=== PATIENT | female | born 1990 | race Caucasian/White ===

== ENCOUNTER 2022-01-24 18:50 | Emergency (ER) | payer MEDICAID, SELFPAY ==
[2022-01-24 18:59] VITALS: BP 126/83; PULSE 136; RESP 20; TEMP 37.3; O2SAT 96; BMI 36.8
--- NOTE | 2022-01-24 19:04 | ED_ITS ---
HPI - General Adult General: Chief complaint: General Medical Stated complaint: Lump in Breast\Fever\N\Muscle Aches Time Seen by Provider: 01/24/22 19:04 History of Present Illness: Ms. Velez is a 31-year-old lady with history of asthma who presents emergency department due to concern over generalized symptoms and breast tenderness. She endorses symptom onset approximately noon today with progressively worsening generalized malaise, body aches, chills, and posterior headache. Quality of symptoms is aching. Course has been worsening. Intensity is moderate. She endorses bilateral arm and wrist pain which is also aching. Additionally she has noticed tenderness and redness of the right breast. No history of MRSA or other skin infections. She is currently breast-feeding. No other specific changes in health, exacerbating, or alleviating factors identified. Onset (ago): hour(s) Severity: moderate Quality: aching Pain Consistency: constant Relieving factors: none Exacerbating factors: movement Associated symptoms: Reports nausea Review of Systems General: Reports: 10 or more systems reviewed and unremarkable except in HPI and below GI: Reports: nausea PFSH ED PFSH: Medical History (Updated 01/24/22 @ 22:53 by Oswaldo Quintana MD) Asthma Surgical History (Updated 01/24/22 @ 19:20 by Oswaldo Quintana MD) History of back surgery Family History (Updated 01/24/22 @ 19:21 by Oswaldo Quintana MD) Denies family history of Clotting disorder Bleeding disorder Social History (Updated 01/24/22 @ 19:21 by Oswaldo Quintana MD) Smoking and tobacco status: former smoker Physical Exam Const: COMMON NORMALS: alert GENERAL APPEARANCE: cooperative, well developed and ill appearing (mildly) HENMT: COMMON NORMALS: normocephalic and atraumatic HEAD & SCALP: normocephalic and atraumatic Eye: COMMON NORMALS: conjunctivae normal CONJUNCTIVA: Yes conjunctivae normal SCLERA: sclerae normal Neck/C-Spine: COMMON NORMALS: supple GENERAL: Yes trachea midline Chest: OTHER: Performed with arc furnace operator present. Right breast with minimal erythema of the lateral breast from the nipple with tenderness palpation. No appreciable abscess identified. Mild/minimal induration. Resp: COMMON NORMALS: normal respiratory effort EFFORT & INSPECTION: Yes a ble to speak in complete sentences Cardio: COMMON NORMALS: regular rhythm RATE: tachycardic RHYTHM: regular rhythm GI: COMMON NORMALS: Soft to palpation PALPATION: Yes Soft to palpation and No Tenderness to palpation present (GI) PERCUSSION: normal to percussion Extremity: GENERAL: Yes normal exam except as noted and No edema Neuro: COMMON NORMALS: moves all extremities SENSORIUM/ORIENTATION: Yes alert and No Orientation impaired Psych: COMMON NORMALS: mental status grossly normal and Normal thought process present THOUGHT PROCESS: Normal thought process present Course ED course: - Patient was seen and evaluated by me at bedside - Patient placed on cardiac monitors, IV access obtained - Initial evaluation notable for exam as above, nontoxic - Labs personally interpreted by me - Fluids and symptom treatment ordered - Labs notable for mild leukocytosis, hemoconcentration noted on hematologic panel. Mild evidence of dehydration on metabolic panel, potassium replenishment given. Procalcitonin is elevated - Given physical exam findings I do not feel that abscess is likely and therefore no imaging needed at this time - Upon serial reexamination after treatment the patient was improved with symptom treatment including improvement in heart rate. - Based on patient history, evaluation, and testing as interpreted the most likely cause of the patient's condition is cellulitis/mastitis. This will be treated with antibiotics. Discussed risks regarding breast-feeding, patient's child is approximately 1 and half years old and therefore very low risk for adverse event related to antibiotic concentration and breastmilk. - Despite initial tachycardia and leukocytosis I believe that patient's overall clinical improvement make certain satisfactory for outpatient management with strict return precautions. Antibiotic dose given prior to discharge. - The results of ED evaluation were discussed with the patient including prescriptions and/or symptomatic cares (if applicable) including appropriate and responsible use, followup plan, and strict return precautions. The patient verbalized understanding and felt safe for discharge. - Patient discharged in satisfactory condition. Note: Click bubbles or prepopulated james in note writing are used for assistance with data collection and billing and are inherently more limited than narrative and other text portions of this note. Please use narrative for additional clinical history and defer to narrative/free test for any case of contradictory information. If information appears in only free text or click bubble it should be considered present or absent as reported. Please contact note check writer salesperson for clarifications of clinical information or contradictory information. MDM is a brief summary, contradictory or erroneous seeming information should be clarified and full note should be reviewed. Vital Signs: Vital signs: Vital Signs Temperature 99.1 F 01/24/22 18:59 Pulse Rate 87 01/24/22 22:59 Respiratory Rate 16 01/24/22 22:59 Blood Pressure 107/86 01/24/22 22:59 Pulse Oximetry 97 01/24/22 22:59 MDM - General Adult Medical Decision Making 31-year-old lady presenting with generalized symptoms and right breast pain with concern over infection. Initially tachycardic and mildly ill-appearing however nontoxic. There is evidence of cellulitis/mastitis without evidence of abscess on clinical exam. Patient improved with treatment and given dose of antibiotics. Satisfactory for outpatient trial of antibiotics with strict return precautions Medical Records I reviewed the patient's medical records. Lab Data I reviewed the patient's lab results. : 01/24/22 20:27 01/24/22 19:47 Laboratory Results WBC 12.4 10^3/uL (4.0-10.0) H 01/24/22 20:27 Corrected WBC Cancelled 01/24/22 19:47 RBC 5.38 10^6/uL (4.1-5.3) H 01/24/22 20:27 Hgb 14.4 g/dL (11.5-15.3) 01/24/22 20:27 Hct 45.3 % (37.0-47.0) 01/24/22 20: MCV 84.2 fl (81-99) 01/24/22 20:27 MCH 26.8 pg (28.0-34.0) L 01/24/22 20: MCHC 31.8 g/dL (30.0-36.0) 01/24/22 20: RDW 14.3 % (12.1-15.1) 01/24/22 20: Plt Count 281 10^3/cmm (130-400) 01/24/22 20: MPV 10.2 fL (7.4-10.4) 01/24/22 20:27 Gran % Cancelled 01/24/22 19:47 Neut % (Auto) 88.4 % 01/24/22 20: Lymph % (Auto) 5.6 % 01/24/22 20: Ritchie % (Auto) 5.2 % 01/24/22 20: Eos % (Auto) 0.3 % 01/24/22 20: Baso % (Auto) 0.2 % 01/24/22 20:27 Neut # (Auto) 10.99 10^3/uL (1.8-7.7) H 01/24/22 20:27 Lymph # (Auto) 0.7 10^3/uL (0.8-4.8) L 01/24/22 20:27 Ritchie # (Auto) 0.7 10^3/uL (0.2-0.9) 01/24/22 20: Eos # (Auto) 0.0 10^3/uL (0.0-0.8) 01/24/22 20: Baso # (Auto) 0.0 10^3/uL (0.0-0.1) 01/24/22 20: Absolute Gran (auto) Cancelled 01/24/22 19:47 Nucleated RBC % (auto) 0 % 01/24/22 20: Nucleated RBCs # 0.0 /100WBC 01/24/22 20:27 Sodium 136 mmol/L (136-145) 01/24/22 19:47 Potassium 3.4 mmol/L (3.5-5.1) L 01/24/22 19:47 Chloride 101 mmol/L (98-107) 01/24/22 19:47 Carbon Dioxide 20 mmol/L (22-29) L 01/24/22 19:47 Anion Gap 18.4 (5-19) 01/24/22 19:47 BUN 13 mg/dL (6-20) 01/24/22 19:47 Creatinine 0.5 mg/dL (0.5-0.9) 01/24/22 19:47 GFR Calculation 143.0 mL/min (90-130) H 01/24/22 19:47 Glucose 97 mg/dL (65-115) 01/24/22 19:47 Calculated Osmolality 282 mOsm/kg (285-295) L 01/24/22 19:47 Lactate 2.2 mmol/L (0.5-2.2) 01/24/22 19:47 Calcium 9.8 mg/dL (8.5-10.5) 01/24/22 19:47 Total Bilirubin 0.5 mg/dL (0.15-1.2) 01/24/22 19:47 AST 30 U/L (0-32) 01/24/22 19:47 ALT 49 U/L (0-33) H 01/24/22 19:47 Alkaline Phosphatase 76 IU/L (35-105) 01/24/22 19:47 Total Protein 7.8 g/dL (6.6-8.7) 01/24/22 19:47 Albumin 4.5 g/dL (3.5-5.2) 01/24/22 19:47 Globulin 3.3 g/dL (1.3-4.6) 01/24/22 19:47 Procalcitonin 1.31 ng/mL (0-0.5) H 01/24/22 19:47 Coronavirus 229E (PCR) Not detected (NOT DETECT) 01/24/22 19:47 SARS-CoV-2 (PCR) Not detected (NOT DETECT) 01/24/22 19:47 Discharge Plan Discharge Patient Disposition: Home Clinical Impression: Acute breast pain, Cellulitis, Tachycardia, Dehydration Condition: Stable Prescriptions: New clindamycin HCl 300 mg capsule 300 mg PO Q8H 10 Days Qty: 30 0RF oxycodone 5 mg tablet 5 mg PO Q4H PRN (Reason: pain) Qty: 10 0RF ondansetron 4 mg tablet,disintegrating 4 mg PO Q8H PRN (Reason: nausea and vomiting) Qty: 15 0RF Discharge Orders: Discharge ED (Routine); Ordered 01/24/22 Ordered By: Oswaldo Quintana Discharge Diet: Usual diet Discharge Activity: Resume usual activity Patient Instructions: Mastitis (ED), Cellulitis (ED), Opioid Safety Activity Restrictions/Additional Instructions: Thank you for visiting the emergency department. You were seen and evaluated for breast pain and likely cellulitis. This will be treated with antibiotics. You were noted to have leukocytosis, evidence of dehydration, and elevated heart rate which can be signs of more serious infection however based on improvement I still feel that outpatient management trial is appropriate. Please follow-up with your primary care provider. Please return to the emergency department for worsening symptoms or anything else that you are concerned about and feel needs emergency department evaluation. Coding Level of Care Code ED Sausage Cutter for Marlen Fwd Exam Comprehensive
[2022-01-24] MEDS: acetaminophen 500 mg Tablet 1000 MG PO (20:03)
[2022-01-24] MEDS: lactated ringers 1,000 ML 999 ML IV ×2 (20:04→21:52)
[2022-01-24 20:09] LABS: Lactate (Lactic Acid level) 2.2 mmol/L (0.5-2.2)
[2022-01-24 20:33] LABS: Basophils % 0.2 %; Eosinophils % 0.3 %; Hematocrit 45.3 % (37.0-47.0); Hemoglobin 14.4 g/dL (11.5-15.3); Lymphocytes # 0.7 10^3/uL (0.8-4.8); Lymphocytes % 5.6 %; Mean Corpuscular HGB Conc 31.8 g/dL (30.0-36.0); Mean Corpuscular Hemoglobin 26.8 pg (28.0-34.0); Mean Corpuscular Volume 84.2 fl (81-99); Mean Platelet Volume 10.2 fL (7.4-10.4); Monocytes # 0.7 10^3/uL (0.2-0.9); Monocytes % 5.2 %; Neutrophils # 10.99 10^3/uL (1.8-7.7); Neutrophils % 88.4 %; Nucleated Red Blood Cells % 0 %; Platelet Count 281 10^3/cmm (130-400); Red Blood Count 5.38 10^6/uL (4.1-5.3); Red Cell Distribution Width 14.3 % (12.1-15.1); White Blood Count 12.4 10^3/uL (4.0-10.0)
[2022-01-24 20:42] VITALS: BP 112/73; PULSE 110; RESP 16; O2SAT 96
[2022-01-24 20:56] LABS: Alanine Aminotransferase 49 U/L (0-33); Albumin Level 4.5 g/dL (3.5-5.2); Alkaline Phosphatase 76 IU/L (35-105); Anion Gap 18.4 (5-19); Aspartate Amino Transferase 30 U/L (0-32); Blood Urea Nitrogen 13 mg/dL (6-20); Calcium 9.8 mg/dL (8.5-10.5); Carbon Dioxide 20 mmol/L (22-29); Chloride 101 mmol/L (98-107); Globulin 3.3 g/dL (1.3-4.6); Glucose 97 mg/dL (65-115); Osmolality Calculated 282 mOsm/kg (285-295); Potassium 3.4 mmol/L (3.5-5.1); Sodium 136 mmol/L (136-145); Total Bilirubin 0.5 mg/dL (0.15-1.2); Total Protein 7.8 g/dL (6.6-8.7)
[2022-01-24 21:03] LABS: Procalcitonin 1.31 ng/mL (0-0.5)
[2022-01-24 21:37] LABS: Adenovirus Not Detected (NOT DETECT); Chlamydia Pneumoniae Not Detected (NOT DETECT); Coronavirus 229E,HKU1,NL63,OC4 Not Detected (NOT DETECT); Human Metapneumovirus Not Detected (NOT DETECT); Human Rhinovirus/Enterovirus Not Detected (NOT DETECT); Influenza A Not Detected (NOT DETECT); Influenza A H1 Not Detected (NOT DETECT); Influenza A H1-2009 Not Detected (NOT DETECT); Influenza A H3 Not Detected (NOT DETECT); Influenza B Not Detected (NOT DETECT); Mycoplasma Pneumoniae Not Detected (NOT DETECT); Parainfluenza Virus Type 1 Not Detected (NOT DETECT); Parainfluenza Virus Type 2 Not Detected (NOT DETECT); Parainfluenza Virus Type 3 Not Detected (NOT DETECT); Parainfluenza Virus Type 4 Not Detected (NOT DETECT); Respiratory Syncytial Virus A Not Detected (NOT DETECT); Respiratory Syncytial Virus B Not Detected (NOT DETECT); SARS-COV-2 Not Detected (NOT DETECT)
[2022-01-24 21:52] VITALS: RESP 18
[2022-01-24] MEDS: morphine 4 mg/mL SDV 1 mL IVP (21:52)
[2022-01-24] MEDS: potassium chloride ER 20 mEq Tablet 40 MEQ PO (21:52)
[2022-01-24] MEDS: clindamycin 600 MG/50 ML PREMIX 100 MG IV (22:16)
[2022-01-24 22:18] VITALS: BP 94/67; PULSE 85; RESP 16; O2SAT 95
[2022-01-24 22:59] VITALS: BP 107/86; PULSE 87; RESP 16; O2SAT 97
== END 2022-01-24 23:02 | disposition home or self-care (01) ==
PROVIDERS: Emergency Provider Emergency Medicine
DX: N64.4 Mastodynia (principal); N61.0 Mastitis without abscess; R00.0 Tachycardia, unspecified; E86.0 Dehydration
CPT/HCPCS: 36415; 80053; 83605; 84145; 85025; 87040; 87635; 96365; 96375; 99284; J2270; J3490

== ENCOUNTER 2023-02-15 06:00 | Outpatient (RCR) | payer OTHER, SELFPAY | END 2023-03-15 23:59 | disposition home or self-care (01) | LOC: TPT 06:00 | PROVIDERS: Visit Provider Orthopaedic Surgery | DX: S83.241D Other tear of medial meniscus, current injury, right knee, subsequent encounter (principal); X58.XXXD Exposure to other specified factors, subsequent encounter | CPT/HCPCS: 97110; 97161 ==

== ENCOUNTER 2023-03-16 06:00 | Outpatient (RCR) | payer OTHER, SELFPAY | END 2023-03-28 23:59 | disposition home or self-care (01) | LOC: TPT 06:00 | PROVIDERS: Visit Provider Orthopaedic Surgery | DX: S83.241D Other tear of medial meniscus, current injury, right knee, subsequent encounter (principal); X58.XXXD Exposure to other specified factors, subsequent encounter | CPT/HCPCS: 97110; 97140 ==

== ENCOUNTER 2025-04-11 19:49 | Emergency (ER) | payer BC, SELFPAY ==
--- OUTSIDE RECORDS SUMMARY | 2024-05-13 08:20 | XMS_ITS ---
Author Organization [facility] Address [address] [place] [address] Care Team Providers Care Police Booking Officer Name Role Phone Kiki Packer Primary Care Provider [phone] Linda Lopez Unavailable [phone] KIKI PACKER Unavailable Unavailable Teresa Moreno [phone] REASON FOR VISIT RIGHT KNEE Encounters Encounter Location Date Provider Diagnosis [facility] [address] [facility] [place] [address] 05/13/2024 Teresa Moreno Plan Of Treatment Next Appt Details Provider Name:Kiki ramos, 04/15/2025 07:40:00 AM, [address], [address], Progress Notes * Brenda VELEZDOB:1989 (34 yo F)Acc No.[id number]:05/13/2024 Progress Notes Patient: Beata Brenda ELLSWORTH Provider: Saskia Moreno PA-C :1990 A ge:33 Y S ex:Female Date:05/13/2024 Address:[address] [place], [place]-[address] Pcp:Kiki Packer Subjective: * Chief Complaints: * 1 . RIGHT KNEE. * Medical History: Objective: * Vitals: Assessment: Plan: * Treatment: Forms: * Billing Information: * Visit Code: * Procedure Codes: Care Plan Details* * Electronic signature of DYLAN Myrick on 04/11/2025 at 07:55 PM CDT Sign off status: Pending * Provider: Saskia Moreno PA-C Date: 05/13/2024 Generated for Stanford alcantara/Naman/Gerson on: 0 04/11/2025 07:55 PM CDT
--- OUTSIDE RECORDS SUMMARY | 2025-04-11 19:55 | XMS_ITS | Patient Health Record ---
Author Organization [facility] Address [address] [place] [address] Care Team Providers Care Lamination Assembler Name Role Phone Kiki Packer Primary Care Provider [phone] Linda Lopez Unavailable [phone] KIKI PACKER Unavailable Unavailable Connie Tanner Unavailable [phone] Teresa Moreno Unavailable [phone] Allergies Allergen (clinical drug ingredient) Drug/Non Drug Allergy documented on EMR Reaction Allergy Type Onset Date Status sulfamethoxazole / trimethoprim Bactrim DS rash Drug Allergy Active Results Component Value Reference Range Notes Rapid Strep (Strep A) -51673 Reviewed date:04/11/2025 03:15:17 PM Interpretation: Performing Lab: Notes/Report: Strep positive COVID-19 RAPID - 71017 Reviewed date:04/11/2025 03:15:32 PM Interpretation: Performing Lab: Notes/Report: COVID19 negative Schedule Confirmation Reviewed date:04/17/2024 01:48:20 PM Interpretation: Performing Lab: Notes/Report: MRI LE JT w/o Cont RT Reason For Referral No Information Medications Medication SIG (Take, Route, Frequency, Duration) Notes Start Date End Date Status Azithromycin 250 MG 2 tablet on the first day, then 1 tablet daily for 4 days Orally Once a day for 5 day(s) 04/11/2025 04/16/2025 Active Diclofenac Sodium 75 MG TAKE ONE TABLET BY MOUTH TWICE DAILY NEEDED Oral for 30 Days Not-Taking ZyrTEC 10 MG 1 tablet Orally Once a day Not-Taking Amoxicillin-Pot Clavulanate 875-125 MG Oral for 7 Days Not-Taking Albuterol Sulfate HFA 108 (90 Base) MCG/ACT inhale TWO puffs BY MOUTH EVERY 6 HOURS NEEDED Inhalation for 25 Days Active Flovent HFA 220 MCG/ACT inhale ONE PUFF into lungs TWICE DAILY FOR 30 DAYS Inhalation for 30 Days Not-Taking Azithromycin 250 MG as directed Orally 09/11/2024 Not-Taking Mupirocin 2 % APPLY topically THREE TIMES DAILY DIRECTED External for 10 Days Not-Taking Sulfamethoxazole-Trimethopr im 800-160 MG Oral for 10 Days Not-Taking SudoGest 60 MG TAKE ONE TABLET BY MOUTH EVERY 6 HOURS NEEDED Oral for 15 Days Not-Taking methylPREDNISolone 4 MG Oral for 6 Days Not-Taking Qvar RediHaler 80 MCG/ACT Inhalation for 30 Days Active Acyclovir 400 MG TAKE ONE TABLET BY MOUTH THREE TIMES DAILY FOR SEVEN DAYS Oral for 7 days Active Pseudoephedrine HCl 60 MG 1 tablet as ne eded Orally every 6 hrs 03/01/2023 Not-Taking Deshawn prn Active Amoxicillin 875 MG TAKE ONE TABLET BY MOUTH TWICE DAILY FOR SEVEN DAYS Oral for 7 Days Not-Taking Social History Tobacco Use: Social History Observation Description Date Details (start date - stop date) Former Smoker NA - NA xTobacco Use/Smoking Question Answer Notes Are you a former smoker Alcohol Screen (Audit-C) Question Answer Notes Did you have a drink containing alcohol in the p ast year? No Points 0 Interpretation Negative PHQ-9 Question Answer Notes Little interest or pleasure in doing things Not at all Feeling down, depressed, or hopeless Not at all Trouble falling or staying asleep, or sleeping t oo much Not at all Feeling tired or having little energy Not at all Poor appetite or overeating Not at all Feeling bad about yourself, or that you are a failure, or have let yourself or your family down Not at all Trouble concentrating on thi ngs, such as reading the newspaper or watching television Not at all Moving or speaking so slowly that other people could have noticed. Or the opposite ? being so fidgety or restless that you have been moving around a lot more than usual Not at all Thoughts that you would be b max off , or of hurting yourself in some way Not at all Total Score 0 Section Notes: 03/09/21 03/22/22 08/08/22 PHQ9 1/8/24 PHQ9 phq9 03/03/2025 03/09/21 03/09/21 03/09/21 03/09/21 03/09/21 03/09/21 03/22/22 03/09/21 03/22/22 03/09/21 03/22/22 03/09/21 03/22/22 03/09/21 03/22/22 03/09/21 03/22/22 08/08/22 PHQ9 03/09/21 03/22/22 08/08/22 PHQ9 03/09/21 03/22/22 08/08/22 PHQ9 03/09/21 03/22/22 08/08/22 PHQ9 03/09/21 03/22/22 08/08/22 PHQ9 03/09/21 03/22/22 08/08/22 PHQ9 03/09/21 03/22/22 08/08/22 PHQ9 03/09/21 03/22/22 08/08/22 PHQ9 03/09/21 03/22/22 08/08/22 PHQ9 03/09/21 03/22/22 08/08/22 PHQ9 03/09/21 03/22/22 08/08/22 PHQ9 03/09/21 03/22/22 08/08/22 PHQ9 03/09/21 03/22/22 08/08/22 PHQ9 03/09/21 03/22/22 08/08/22 PHQ9 03/09/21 03/22/22 08/08/22 PHQ9 03/09/21 03/22/22 08/08/22 PHQ9 03/09/21 03/22/22 08/08/22 PHQ9 10/23/23 PHQ9 03/09/21 03/22/22 08/08/22 PHQ9 10/23/23 PHQ9 03/09/21 03/22/22 08/08/22 PHQ9 10/23/23 PHQ9 phq9 03/03/2025 Problems Problem Type SNOMED Code ICD Code Onset Dates Problem Status W/U Status Risk Notes Problem Discoid meniscus of knee (disorder) (166890065) Discoid meniscus (Q68.6) Active confirmed Problem 61615479 Paresthesia of skin (R20.2) Active confirmed Problem Body mass index 35.00 to 39.99 (602768768984824) Body mass index (BMI) 36.0-36.9, adult (Z68.36) Active confirmed Problem 1237472447 Acute pain of right knee (M25.561) Active confirmed Problem 023718891843717 Moderate persistent asthma with acute exacerbation (J45.41) Active confirmed Problem Sinusitis (41737726) Sinusitis (J32.9) Active confirmed Problem Obesity (953910270) Obesity (BMI 30-39.9) (E66.9) Active confirmed Problem 210839997 Obesity, unspecified classification, unspecified obesity type, unspecified whether serious comorbidity present (E66.9) Active confirmed Problem 629155066221468 Obesity (BMI 30.0-34.9) (E66.9) Active confirmed Problem 321916559 Seasonal allergies (J30.2) Active confirmed Problem 402473013 Moderate persistent asthma with exacerbation (J45.41) Active confirmed Problem Environmental allergy (935550634) Environmental allergies (Z91.09) Active confirmed Problem 01573572300927056 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) Active confirmed Problem 633521867 Body mass index [BMI] 32.0-32.9, adult (Z68.32) Active confirmed Problem 028827942 Body mass index [BMI] 34.0-34.9, adult (Z68.34) Active confirmed Problem 822392985 Other tear of medial meniscus of right knee as current injury, initial encounter (S83.241A) Active confirmed Problem 983061651 Enchondroma of bone (D16.9) Active confirmed Problem 641031767989803 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 confirmed Problem 44303364 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) Active confirmed Vital Signs Heart Rate 86 /min 04/11/2025 Temperature 97.5 degrees Fahrenheit 04/11/2025 Respiratory Rate 18 /min 04/11/2025 Height-cm 161.29 cm 04/11/2025 Oximetry 98 % 04/11/2025 Blood pressure diastolic 101 mm Hg 04/11/2025 Weight-kg 97.98 kg 04/11/2025 Height 63.5 in 04/11/2025 Blood pressure systolic 148 mm Hg 04/11/2025 Weight 216 lbs 04/11/2025 BMI 37.66 kg/m2 04/11/2025 Encounters Encounter Location Date Provider Diagnosis [facility] [place] [place] [address] 04/16/2024 Connie Tanner Enchondroma D16.9 an d Discoid meniscus Q68.6 [facility] [address] [place] [address] 04/16/2024 Connie Tanner [facility] [address] [place] [address] 04/17/2024 Connie Tanner [facility] [address] [place] [address] 09/11/2024 Kiki Packer [facility] [address] [place] [address] [facility]/29/20[facility] B00.1 [facility] [address] [facility] [address] [place] [address] 03/03/2025 Linda Lopez Bronchitis J40 ; Environmental allergies Z91.09 and Depression screen Z13.31 [facility] [address] [facility] [address] [place] [address] 04/11/2025 Linda Lopez Ear pain H92.09 ; Sore throat J02.9 ; Sinusitis J32.9 and Strep pharyngitis J02.0 Assessments Encounter Date Diagnosis (ICD Code) Assessment Notes Treatment Notes Treatment Clinical Notes Section Notes 04/16/2024 Enchondroma (ICD-10 - D16.9) 01/29/2025 Cold sore (ICD-10 - B00.1) 03/03/2025 Bronchitis (ICD-10 - J40) cephalexin medrol dose pack 04/16/2024 Discoid meniscus (ICD-10 - Q68.6) 03/03/2025 Environmental allergies (ICD-10 - Z91.09) deshawn 04/11/2025 Sore throat (ICD-10 - J02.9) covid neg in clinc rapid strep positive 04/11/2025 Ear pain (ICD-10 - H92.09) 04/11/2025 Sinusitis (ICD-10 - J32.9) depomedrol/dec adron im 03/03/2025 Depression screen (ICD-10 - Z13.31) 04/11/2025 Strep pharyngitis (ICD-10 - J02.0) z amira 04/11/2025 Other Questions asked and answered; discharged to home. 03/03/2025 Other Questions asked and answered; discharged to home. Plan Of Treatment Future Test Test Name Order Date MRI LE JT w/o Cont [id number] 04/16/2024 Next Appt Details Provider Name:Kiki Yu rton, 04/15/2025 07:40:00 AM, [address] [place] [address], [address], Insurance Providers Payer Name Payer Address Payer Phone Subscriber Number Group Number Insured Name Patient Relationship to Insured Coverage Start Date Coverage End Date [employer] [place] [address] [place] [address] [id number] Brenda Velez Self - patient is the insured Medications Administered Medication Instructions Date of Administration Dosage Notes DEPO-Medrol 04/20/2023 1 mL DEPO-Medrol 04/11/2025 [place] [id number] 3-01 pt tolerated well/instructed to wait 20 min dexAMETHasone 05/11/2022 8 mg [id number] 239-30 dexAMETHasone 11/23/2021 8 mg dexAMETHasone 03/01/2023 8 mg [id number] 423-00 Patient tolerated well dexAMETHasone 04/11/2025 4 mg ndc 71113-0 423-00 pt tolerated well/instructed to wait 20 min Ketorolac Tromethamine 01/25/2022 60 mg Ketorolac Tromethamine 05/11/2022 60 mg nd [id number] Lidocaine 04/20/2023 2 mL Rocephin 01/25/2022 1 g Medical (General) History Medical History History ICD Code asthma Chicken Pox Pneumonia migraine headaches Back Trouble bronchitis anxiety GERD irritable bowel syndrome depression Surgical History Surgery Date(Month/Year) section x3 back surgery 2006 cholecystectomy 10/2018 Hospitalization History Reason Date(Month/Year) [facility] ER 01/25/22
[2025-04-11 20:00] VITALS: BP 191/116; PULSE 120; RESP 16; TEMP 36.7; O2SAT 98; BMI 38.4
[2025-04-11 20:33] LABS: Bilirubin Urine Negative (Negative); Blood Urine Negative (Negative); Glucose Urine UA Negative (Normal); Ketones Urine Trace (Negative); Leukocyte Esterase Urine Negative (Negative); Nitrate Urine Negative (Negative); Protein Urine Negative (Negative); Specific Gravity, Urine 1.003 (1.005-1.030); Urine Appearance Clear (CLEAR); Urine Color Yellow (Yellow); Urobilinogen Urine 0.2 mg/dL (Negative); pH Urine 6.5 (5-7)
[2025-04-11 20:37] LABS: Add Urine Microscopic? YES; Bacteria Urine None Seen /hpf; Hyaline Casts Urine 0-4 /lpf; RBC Urine 0-2 /hpf (0-2); Squamous Epithelial Cell Urine 0-5 /hpf (0-5); WBC Urine 0-5 /hpf (0-5)
[2025-04-11 22:09] VITALS: BP 168/103; PULSE 89; RESP 16; O2SAT 97
[2025-04-11 22:20] VITALS: BP 154/89
[2025-04-11] MEDS: cloNIDine 0.1 mg Tablet PO (22:20)
--- NOTE | 2025-04-11 22:39 | W.ED.RECABL ---
HPI - Recheck/Abnormal Lab/Rx General: Chief Complaint: Recheck/Abnormal Lab/Rx Stated Complaint: HBP headache Time Seen by Provider: 04/11/25 21:18 History of Present Illness: Patient is 34-year-old female not on routine medications presents to ED for headache. This has been occurring for 1 day. Associated with photophobia. She does have association nausea. She is wearing sunglasses. She has full range of motion of her neck. Her blood pressure was elevated on arrival. Patient was seen at her primary care physician last week, and there was concerned her blood pressure was elevated, and she started the DASH diet, as well as took her first shot up to his appetite this week, and is awaiting follow-up with primary care next Monday. Headache is described as into her lower jaw, and posterior head. No trauma, no injury Related Data Previous Rx's ?Medication ?Instructions ?Recorded cephalexin 500 mg capsule 500 mg PO TID 7 days #21 caps 12/05/22 mupirocin calcium 2 % topical cream 1 applic topical TID #30 grams 12/05/22 clonidine HCl 0.1 mg tablet 0.1 mg PO Q8H PRN hypertensive 04/12/25 emergency #30 tabs Allergies Allergy/AdvReac Type Severity Reaction Status Date / Time sulfamethoxazole (From Allergy Intermediate ADR-Itching Verified 04/11/25 20:02 Bactrim) trimethoprim (From Bactrim) Allergy Intermediate ADR-Itching Verified 04/11/25 20:02 Review of Systems Const: Denies: fever(s) or chills Eyes: Denies: change in vision Card: Denies: chest pain or palpitations Resp: Denies: dyspnea or productive cough GI: Denies: abdominal pain, nausea or vomiting : Denies: flank pain or difficulty voiding Musc: Denies: neck pain, back pain, extremity pain, joint pain or joint swelling Skin/Breast: Denies: rash, pruritus or erythema Neuro: Reports: headache(s); Denies: numbness in extremities, weakness in extremities or sensory changes Psych: Denies: anxiety or depression Endo: Denies: polyuria or polydipsia PFSH ED PFSH: Medical History Asthma Surgical History History of back surgery Family History Denies family history of Clotting disorder Bleeding disorder Social History Smoking and tobacco/nicotine status: former use of tobacco/nicotine Female Reproductive History: Date of last menstrual period: 03/29/25 Physical Exam Const: COMMON NORMALS: patient oriented x3 and alert ORIENTATION/CONSCIOUSNESS: Yes oriented to person and Yes oriented to place HENMT: COMMON NORMALS: normocephalic and atraumatic HEAD & SCALP: normocephalic and atraumatic Eye: COMMON NORMALS: Equal, round and reactive pupils present and EOMs intact bilaterally PUPIL: Yes Equal, round and reactive pupils present Neck/C-Spine: COMMON NORMALS: full ROM, no lymphadenopathy, supple and no meningeal signs Lymph: LYMPHATIC: no lymphadenopathy noted Chest: COMMONS NORMALS: normal inspection of the chest and normal palpation of entire chest wall Resp: COMMON NORMALS: normal respiratory effort and No retractions Cardio: COMMON NORMALS: regular rate and regular rhythm RATE: regular rate RHYTHM: regular rhythm GI: COMMON NORMALS: Normal to inspection, nondistended, normoactive bowel sounds present and Soft to palpation INSPECTION: Yes normal to inspection PALPATION: Yes Soft to palpation : COMMON NORMALS: Yes no CVA tenderness BLADDER/KIDNEY EXAM: Yes no CVA tenderness Back/Pelvis: COMMON NORMALS: no CVA tenderness Extremity: COMMON NORMALS: normal to inspection, full ROM and capillary refill normal Neuro: COMMON NORMALS: patient oriented x3, CN's II-XII intact bilaterally and moves all extremities SENSORIUM/ORIENTATION: Yes alert, Yes oriented to person and Yes oriented to place MENINGEAL SIGNS: Yes no meningeal signs and Yes nuccal rigidity COORDINATION/BALANCE: [id number] test normal SPEECH: speech normal MOTOR EXAM: 5/5 motor strength present throughout COORDINATION: [id number] test normal PUPIL EXAM: Normal pupillary reactivity/response: bilateral Psych: COMMON NORMALS: mental status grossly normal and Normal thought process present THOUGHT PROCESS: Normal thought process present Skin: COMMON NORMALS: no rashes or lesions noted and no wounds GENERAL SKIN EXAM: no rashes or lesions noted Course Reevaluation(s): Reevaluation #1: Was better after clonidine, then additional Toradol, Compazine, Benadryl completely resolved. Vital Signs: Vital signs: Vital Signs Temperature 98.0 F 04/11/25 20:00 Pulse Rate 77 04/12/25 00:21 Respiratory Rate 16 04/12/25 00:21 Blood Pressure 140/94 04/12/25 00:21 Pulse Oximetry 98 04/12/25 00:21 Oxygen Delivery Me thod Room Air 04/11/25 23:25 MDM - Recheck/Abnormal Lab/Rx Medical Decision Making Discussed plan of care with patient. Typically, we do not correct blood pressures unless they are emergent hypertensive due to literature noting association of syncope when overcorrected in the emergency department. Patient would like to just try to correct her blood pressure to see if this helps her headache prior to moving to a headache protocol. She has full range of motion and no meningeal signs. No red flags. Last headache was 3 months ago which was similar. Discussed with patient that since clonidine mainly took her headache away, I will send in as needed prescription and she will do a blood pressure log to return to her doctor with. This medication is temporary, and her doctor will manage ongoing medications. Patient states understanding Lab Data Laboratory Results Urine Color Yellow (Yellow) 04/11/25 20:20 Urine Appearance Clear (CLEAR) 04/11/25 20:20 Urine pH 6.5 (5-7) 04/11/25 20:20 Ur Specific Benoit 1.003 (1.005-1.030) L 04/11/25 20:20 Urine Protein Negative (Negative) 04/11/25 20:20 Urine Glucose (UA) Negative (Normal) 04/11/25 20:20 Urine Ketones Trace (Negative) 04/11/25 20:20 Urine Blood Negative (Negative) 04/11/25 20:20 Urine Nitrate Negative (Negative) 04/11/25 20:20 Urine Bilirubin Negative (Negative) 04/11/25 20:20 Urine Urobilinogen 0.2 mg/dL (Negative) 04/11/25 20:20 Ur Leukocyte Esterase Negative (Negative) 04/11/25 20:20 Urine RBC 0-2 /hpf (0-2) 04/11/25 20:20 Urine WBC 0-5 /hpf (0-5) 04/11/25 20:20 Ur Squamous Epith Cells 0-5 /hpf (0-5) 04/11/25 20:20 Amorphous Sediment Not Reportable 04/11/25 20:20 Urine Bacteria None seen /hpf (NONE) 04/11/25 20:20 Hyaline Casts 0-4 /lpf H 04/11/25 20:20 No radiology studies performed this visit Discharge Plan Discharge Patient Disposition: Home Clinical Impression: Hypertension, uncontrolled Acute headache Qualifiers: Headache type: tension-type Intractability: intractable Qualified Code(s): G44.201 - Tension-type headache, unspecified, intractable Condition: Stable Prescriptions: New clonidine HCl 0.1 mg tablet 0.1 mg PO Q8H PRN (Reason: hypertensive emergency) Qty: 30 0RF No Action cephalexin 500 mg capsule 500 mg PO TID 7 Days Qty: 21 0RF mupirocin calcium 2 % cream 1 applic topical TID Qty: 30 1RF Discharge Orders: Discharge ED (Routine); Ordered 04/12/25 Ordered By: Miri Joshi Referrals: Kiki Packer APN [Primary Care Provider, [facility]] Discharge Diet: Low Salt Discharge Activity: Resume usual activity Patient Instructions: Acute Headache (ED), Hypertensive Crisis (ED), Patient Portal & [facility] Instructions Activity Restrictions/Additional Instructions: Follow a low-salt diet. Take blood pressure daily. Take clonidine if your blood pressure top number is greater than 160, or bottom number is greater than 100 Follow-up with your doctor on Monday with your blood pressure log. Return to ED for reoccurring headache, ongoing issues Blood pressure medicine appeared to work the best as per your report to report to your doctor. Print Language: Estonian Coding Level of Care Code ED [employer] Consultant for Marlen Ceron
[2025-04-11 22:45] VITALS: BP 160/98; PULSE 87; RESP 15; O2SAT 96
[2025-04-11] MEDS: ketorolac 30 mg/mL INJ IM (22:57)
[2025-04-11] MEDS: prochlorperazine 10 mg/2 mL Inj 5 MG IM (22:57)
[2025-04-11] MEDS: diphenhydrAMINE 50 mg/mL SDV 1mL IM (22:57)
[2025-04-11 23:25] VITALS: BP 176/98; PULSE 68; RESP 18; O2SAT 96
[2025-04-12 00:21] VITALS: BP 140/94; PULSE 77; RESP 16; O2SAT 98
== END 2025-04-12 00:16 | disposition home or self-care (01) ==
PROVIDERS: Student in an Organized Health Care Education/Training Program; Emergency Provider Physician Assistant; PCP Nurse Practitioner Family
DX: G44.201 Tension-type headache, unspecified, intractable (principal); I10 Essential (primary) hypertension; Z87.891 Personal history of nicotine dependence
CPT/HCPCS: 81001; 96372; 99284; J0780; J1200; J1885; J9999